=== PATIENT | female | born 1990 | race African-American/Black ===

== ENCOUNTER 2017-06-15 14:57 | Emergency (ER) | payer BC, OTHER ==
[~2017-06-15] VITALS: Ht 157.5 cm; Wt 59.0 kg
[~2017-06-15 14:57] MED LIST: ACETAMINOPHEN325 M1 PO; AMBIEN 5 MG TABL5 M1; AMBIEN 5 MG TABL5 MG; APAP500; APAP500 PO; COLACE 100 MG100 MG PO; DERMOPLAST SPRA56 ML; HYDROCODON-ACE1 EAC8 PO; HYDROCODONE-AP1 EAC6 PO; IBUPROFEN 600600 M1; IBUPROFEN 800800 M1; IRON325 PO; K-DUR 20 MEQ T20 MEQ PO; LANOLIN56 GM; MACROBID 100 M100 M1 PO; NAPROSYN500 MG PO; NORCO 5-325 TA1 EACH PO; NORCO 7.5-3251 EACH; PHENERGAN 25 MG25 M1 PO; PRENATA CHEWAB1 EACH PO; PRENATAL; TUCKS MEDICATE1 EAC1; ZOFRAN ODT4 MG PO
[2017-06-15 15:35] LABS: BASOPHILS 0.7 % (0.0-2.0); EOSINOPHILS 1.3 % (0.0-3.0); HEMATOCRIT 37.8 % (37.0-47.0); HEMOGLOBIN 12.8 gm/dL (12.0-15.0); LYMPHOCYTES 31.2 % (24.0-44.0); MCH 28.4 pg (26.0-34.0); MCHC 33.9 g/dL (28.0-37.0); MCV 83.9 fL (80.0-100.0); MONOCYTES 7.5 % (1.0-8.0); PLATELET COUNT 232 thou/uL (150-400); POLYS 59.3 % (36.0-66.0); WBC 6.8 thou/uL (4.0-11.0)
[2017-06-15 15:36] LABS: MANUAL DIFF NO
[2017-06-15 15:39] LABS: CALCIUM 9.4 mg/dL (8.5-10.1); CREATININE 0.6 mg/dL (0.6-1.0); POTASSIUM 3.3 mmol/L (3.5-5.1)
[2017-06-15 15:45] LABS: ALBUMIN 3.4 g/dL (3.4-5.0); TOTAL BILIRUBIN 0.6 mg/dL (<0.1-1.0); TOTAL PROTEIN 7.6 g/dL (6.4-8.2)
[2017-06-15 16:22] LABS: URINE BILIRUBIN NEGATIVE (Negative); URINE BLOOD NEGATIVE (Negative); URINE COLOR YELLOW; URINE GLUCOSE-RANDOM* NEGATIVE (Negative); URINE KETONES TRACE (Negative); URINE PROTEIN (DIPSTICK) NEGATIVE (Negative); URINE SPECIFIC GRAVITY 1.025 (1.003-1.035); URINE UROBILINOGEN 0.2 E.U./dl (0.2-1.0)
[2017-06-15 16:24] LABS: URINE LEUKOCYTES-REFLEX 1+ (Negative)
[2017-06-15 16:31] LABS: SQUAMOUS >10 Many /LPF (0-3)
[2017-06-15 16:36] LABS: CASTS None Seen /LPF (None Seen); CRYSTALS None Seen /LPF (None Seen); URINE RBC 0-2 Rare /HPF (0-2); URINE WBC-REFLEX 6-15 Few /HPF (0-5)
[2017-06-15] MEDS ORDERED: REGLAN 10 MG TA10 MG PO (16:41)
[2017-06-15] MEDS ORDERED: KEFLEX500 M1 PO (16:41)
[2017-06-15 16:48] VITALS: BP 120/92
== END 2017-06-15 16:48 | disposition home or self-care (01) ==
LOC: ER 14:57
PROVIDERS: Physician Assistant
DX: O21.0 Mild hyperemesis gravidarum (principal); O23.41 Unspecified infection of urinary tract in pregnancy, first trimester; Z3A.09 9 weeks gestation of pregnancy

== ENCOUNTER 2020-04-26 00:27 | Emergency (ER) | payer OTHER ==
[~2020-04-26] VITALS: Ht 152.4 cm; Wt 64.4 kg
[~2020-04-26 00:27] MED LIST changes: +KEFLEX500 M1 PO; +REGLAN 10 MG TA10 MG PO
[2020-04-26 02:49] VITALS: BP 101/58
== END 2020-04-26 02:51 | disposition home or self-care (01) ==
LOC: ER 00:27
DX: F10.129 Alcohol abuse with intoxication, unspecified (principal); Y90.9 Presence of alcohol in blood, level not specified